=== PATIENT | female | born 1935 | race Caucasian/White ===

== ENCOUNTER 2022-01-21 11:58 | Outpatient (CLI) | payer MEDICARE, BC | END 2022-01-21 23:59 | disposition home or self-care (01) | LOC: LAB 11:58 | PROVIDERS: ATTEND Nurse Practitioner Primary Care | DX: Z01.810 Encounter for preprocedural cardiovascular examination (principal) | CPT/HCPCS: 93005 ==

== ENCOUNTER 2022-08-25 15:49 | Outpatient (CLI) | payer MEDICARE, BC | END 2022-08-25 23:59 | disposition home or self-care (01) | LOC: RAD 15:49 | PROVIDERS: ATTEND Nurse Practitioner Primary Care | DX: Z96.652 Presence of left artificial knee joint (principal) | CPT/HCPCS: 93005 ==

== ENCOUNTER 2023-02-06 11:58 | Outpatient (CLI) | payer MEDICARE, BC | END 2023-02-06 23:59 | disposition home or self-care (01) | LOC: RAD 11:58 | PROVIDERS: ATTEND Orthopaedic Surgery | DX: Z01.810 Encounter for preprocedural cardiovascular examination (principal); R00.1 Bradycardia, unspecified; Z96.652 Presence of left artificial knee joint | CPT/HCPCS: 93005 ==